=== PATIENT | male | born 1930 | race Caucasian/White ===

== ENCOUNTER 2017-07-03 13:43 | Inpatient (IN) ==
--- NOTE | 2017-07-02 20:53 | Discharge Summary ---
<Leslie Rios - Last Filed: 07/02/17 20:50> Date of Encounter: 07/02/17 - Discharge Diagnosis (1) Arthritis of knee, right Priority: Primary Status: Acute (2) Status post total knee replacement, right Priority: Primary Status: Acute (3) HTN (hypertension) Priority: Secondary Status: Chronic Qualifiers: Hypertension type: essential hypertension Qualified Code(s): I10 - Essential (primary) hypertension - Hospital Course Hospital course: Mr. Ronquillo is a 86 year old male - Time Spent with Patient Total time spent providing and/or coordinating discharge services: - Discharge Medications Home Medications: Aspirin Enteric Coated [Aspirin EC] 325 mg PO BID #20 tablet. 07/02/17 [Rx] OxyCODONE Immed Rel [Roxicodone 5 MG] 5 mg PO Q6HR PRN 7 Days #28 tablet [Rx] Aspirin 81 mg PO DAILY 07/03/17 [History] Cyanocobalamin (Vitamin B-12) [Vitamin B12] 1,000 mcg PO DAILY 07/03/17 [History ] Gabapentin [Neurontin] 100 mg PO BID 07/03/17 [History] Levothyroxine Sodium 50 mcg PO 0630 07/03/17 [History] Multivit-Min/FA/Lycopen/Lutein [Centrum Silver Men Tablet] 1 tab PO DAILY [History] Allergies/Adverse Reactions: 3 Allergy/AdvReac Type Severity Reaction Status Date / Time Sulfa (Sulfonamide Allergy Itching Verified 07/03/17 14:03 Antibiotics) Primary care physician: Dominic Mack, - Patient Status Disposition: Transfer Inpatient Rehab Fac Condition: Good - Discharge Instructions Follow Up With: Corey Escobedo MD [Partnered Physician] - 08/02/17 5:20 pm Leslie Rios, PAC [Physician Construction Helper] - 07/13/17 9:30 am Dominic Mack DO [Primary Care Provider] - Additional Instructions: Discharge Instructions: Total Knee Replacement Please call [facility] ([phone]), your Primary Care Physician, or report to the Emergency Room if you have any of the following symptoms: Nausea, vomiting, fever greater that 101.5, swelling, chest pain, shortness of breath, increased pain/redness/drainage/odor for your incision site, numbness/ tingling, or any other concerning symptoms. ACTIVITY:Weight-bearing as tolerated. You may progress off support (crutches or walker) as tolerated. MEDICATIONS: Upon discharge resume your home medications. Take all the medications as prescribed. Take a stool softener if taking narcotic pain medications. Stool softeners are only effective if you drink enough fluids. Drink 6-8 glass of water or fluids a day, unless this is not allowed for another health problem. Despite using stool softeners, if you haven't had a bowel movement in 3 days, please switch to a gentle laxative. Gentle laxatives are sold over the counter. You should have a bowel movement within 24 hours, if not call the office. You will be discharged from the hospital with a prescription for pain medication. You are encouraged to decrease the use of narcotic pain medication as tolerated. Should you require a refill, please call the office. [facility] prescribes narcotic pain medication for only 4-6 weeks after surgery. If you require pain medication beyond this time period, you may be referred to your Primary Care Physician or to the Pain Clinic for further evaluation. Plan ahead for refills on pain medication as many narcotics either need to be picked up at the office or mailed. It is best to call 48-72 hours in advance of needing a prescription refill so you don't run out of medication. To help control the post-operative pain, you may take NSAIDs (Aleve,Advil, Motrin, Ibuprofen, Naprosyn) or Tylenol as prescribed on the bottle in addition to the pain medication. ANTICOAGULATION (blood thinners): Continue your Aspirin, Lovenox or Coumadin as prescribed to help prevent a blood clot in the leg or in the lungs. As long as your incision remains dry and you tolerate the NSAIDs (Aleve, Advil, Motrin, ibuprofen, naprosyn), it is OK to use the NSAIDS while you are taking your anticoagulation medication. Should your incision start to drain, stop the NSAID and contact our office. Common symptoms of blood clot in the legs include: localized pain, swelling, calf tenderness, redness or discoloration of the skin. Blood clot in the lung symptoms include: shortness of breath, rapid pulse, sweating, and chest pain that worsens with deep breathing, coughing up blood, lightheadedness, feelings of anxiety. If you experience any of these symptoms notify your physician immediately, go to the emergency room, or if having trouble breathing, call 911. WOUND CARE: Leave the dressing on for 7 to 10days. You may change the dressing if it becomes saturated greater than 50%. Do not get the dressing wet at anytime. Wash your hands with antibacterial soap, rinse and dry prior to any wound care. If you have suellen the visiting nurse or rehab facility can remove the stapes 10-14 days after surgery and place steri-strips across the wound. Leave the steri-strips in place until they fall off on their won. You may let water from the shower run on top of the steri-strips. If you do not have a visiting nurse or rehab facility, you will need to return to the office at 10-14 days for the suellen to be removed. If you have itching or redness around the dressing call the office. FOLLOW-UP: Please follow up with your surgeon in the orthopedic clinic in 4 weeks from the day of surgery. If you have suellen that need to be removed, you will need to come back to the office in 10-14 days from the day of surgery. <Corey Escobedo - Last Filed: 07/06/17 06:02> Orders not resulted at time of discharge: Pending orders 07/03/17 00:01 XR knee RT limited 1-2V [XR] Routine H/H [Hemoglobin and Hematocrit] [HEME] Routine 07/03/17 14:09 US anesthesia pain block [US] Routine Date of Encounter: 07/06/17 Time of Encounter: 06:01 - Discharge Diagnosis (1) Arthritis of knee, right Priority: Primary Status: Chronic (2) Status post total knee replacement, right Priority: Primary Status: Acute (3) HTN (hypertension) Priority: Secondary Status: Chronic Qualifiers: Hypertension type: essential hypertension Qualified Code(s): I10 - Essential (primary) hypertension - Hospital Course Hospital course: Mr. Ronquillo is a 86 year old male Status post right total knee replacement The patient had an uneventful postoperative course. They received antibiotics and physical therapy and were discharged in stable condition. There will follow -up in the office in 2 weeks. - Time Spent with Patient Total time spent providing and/or coordinating discharge services: Primary care physician: Dominic Mack, - Patient Status Functional capacity at discharge: uses cane/walker Overall status at discharge: patient is progressing back to baseline
--- NOTE | 2017-07-02 21:47 | Physician Discharge Referral ---
<Leslie Rios Jade - Last Filed: 07/02/17 21:45> ExtendedCare Referral Info Transfer To: [facility] Provider in Charge: Provider in Charge after Transfer: PCP Institutional Level of Care: Skilled - Diagnosis (1) Arthritis of knee, right Priority: Primary Status: Acute (2) Status post total knee replacement, right Priority: Primary Status: Acute (3) HTN (hypertension) Priority: Secondary Status: Chronic Expected Duration of Placement: < 30 days Prognosis: Good Aware of Diagnosis: Patient Aware of Prognosis: Patient - Transfer Medications Prescriptions: OxyCODONE Immed Rel [Roxicodone 5 MG] 5 mg PO Q6HR PRN 7 Days #28 tablet PRN Reason: Pain Aspirin Enteric Coated [Aspirin EC] 325 mg PO BID #20 tablet. Home Medications: Aspirin Enteric Coated [Aspirin EC] 325 mg PO BID #20 tablet. 07/02/17 [Rx] OxyCODONE Immed Rel [Roxicodone 5 MG] 5 mg PO Q6HR PRN 7 Days #28 tablet [Rx] Aspirin 81 mg PO DAILY 07/03/17 [History] Cyanocobalamin (Vitamin B-12) [Vitamin B12] 1,000 mcg PO DAILY 07/03/17 [History ] Gabapentin [Neurontin] 100 mg PO BID 07/03/17 [History] Levothyroxine Sodium 50 mcg PO 0630 07/03/17 [History] Multivit-Min/FA/Lycopen/Lutein [Centrum Silver Men Tablet] 1 tab PO DAILY [History] Allergies/Adverse Reactions: 3 Allergy/AdvReac Type Severity Reaction Status Date / Time Sulfa (Sulfonamide Allergy Itching Verified 07/03/17 14:03 Antibiotics) - Respiratory Orders None Smoking Cessation: Smoking cessation has been advised. For more information, call the [place] Tobacco Quit Line at 2-809-TCFL-NOW. - Ancillary Orders May use pressure relief devices daily prn, May go on FAMILIA w/family/respon libertarian w /meds at nurse discretion PRN, May consult with Dentist, Graphics Programmer, Aircraft Ordnance Technician PRN - Mobility Orders Chair, Ambulate - Rehabiliation Orders Rehab Potential: Good Rehab Orders: ROM Exercises, Evaluation for Physical Therapy, Evaluation for Occupational Therapy - Treatments Skin tear care topically daily PRN per policy List/Other: Knee Continuity: Opsite dressing, leave intact until first post-operative visit. If dressing becomes >50% saturated, contact office, remove dressing and place appropriate dressing in its place. Do not allow for dressing to get wet. Zipline/[place] in place, plan to remove at post-operative day #14-16. Total Joint Precautions x 6 weeks Apply cold therapy wrap 3-6x/day for 20 minutes at a time. Encourage ambulation throughout the day Use Incentive spirometer 10x/hour. Elevate affected extremity above heart as tolerated. Brace: Wear knee immobilizer at night x 2 weeks.~ - Diet Orders Regular CERTIFICATION: I certify that the transfer of the above named patient to an Extended Care Facility is necessary for the continuing treatment of the diagnosis listed. The above information is true and accurate reflection of patient's current condition. Confidential - Redisclosure prohibited without a patient's written consent. <Corey Escobedo - Last Filed: 07/03/17 14:22> - Respiratory Orders Smoking Cessation: Smoking cessation has been advised. For more information, call the [place] Tobacco Quit Line at 4-646-BFQB-NOW. CERTIFICATION: I certify that the transfer of the above named patient to an Extended Care Facility is necessary for the continuing treatment of the diagnosis listed. The above information is true and accurate reflection of patient's current condition. Confidential - Redisclosure prohibited without a patient's written consent.
[2017-07-03] MEDS ORDERED: Ethanol\\Acetic Acid\\Na Ace\\Ben 1,000 ML IRRIG.SOLN IR ONE (13:50)
[2017-07-03] MEDS ORDERED: CeFAZolin Syr 2,000MG/20 ML 2,000 MG/20 ML SYRINGE IVPB ONE (14:02)
--- NOTE | 2017-07-03 14:11 | Anesthesia Evaluation PreOp ---
Date of Encounter: 07/03/17 Time of Encounter: 14:10 - Past History Planned Operation: Right Total Knee Arthroplasty Cardiac History: Denies any Significant Hx Pulmonary History: Denies Any Significant HX TAX RECORD CLERK History: Denies Any Significant HX Other Medical History: Thyroid (Hypothyroid), Other (Gout) Anesthesia History: No Prior Anesthetic Complications, Past Anesthesia (Right Wrist, Left TKR) Alcohol Use: none Drug use: none Medications and Allergies Aspirin Enteric Coated [Aspirin EC] 325 mg PO BID #20 tablet.dr 07/02/17 [Rx] OxyCODONE Immed Rel [Roxicodone 5 MG] 5 mg PO Q6HR PRN 7 Days #28 tablet [Rx] Aspirin 81 mg PO DAILY 07/03/17 [History] Cyanocobalamin (Vitamin B-12) [Vitamin B12] 1,000 mcg PO DAILY 07/03/17 [History ] Gabapentin [Neurontin] 100 mg PO BID 07/03/17 [History] Levothyroxine Sodium 50 mcg PO 0630 07/03/17 [History] Multivit-Min/FA/Lycopen/Lutein [Centrum Silver Men Tablet] 1 tab PO DAILY [History] 3 Allergy/AdvReac Type Severity Reaction Status Date / Time Sulfa (Sulfonamide Allergy Itching Verified 07/03/17 14:03 Antibiotics) - Meds/Allergy Pre-op Review Medications Reviewed: Yes Allergies Reviewed: Yes Beta Blockers on Current Med List: No Anesthesia Results - Labs Laboratory Tests 06/12/17 06/12/17 06/12/17 10:51 10:51 10:51 WBC 9.2 Hgb 13.2 Hct 40.7 Plt Count 310 INR 1.3 Sodium 139 Potassium 4.2 Chloride 105 Carbon Dioxide 29 BUN 15 Creatinine 0.90 Anesthesia Exam Vital Signs/O2 Sat, Most Current Temp Pulse Resp BP Pulse Ox 97.7 F 92 18 161/73 97 07/03/17 14:03 07/03/17 14:03 07/03/17 14:03 07/03/17 14:03 07/03/17 14:03 NPO (# of Hours): > 8 Hrs Pain Scale: 0 Pain Scale Used: Numeric (1 - 10) - HEENT Pupil (Motor): Pupils equal, EOMI Mallampati: III Teeth: Missing Oral Opening: Greater than 3 - TAX RECORD CLERK LOC: Oriented TAX RECORD CLERK Motor: Normal RUE, Normal LUE, Normal RLE, Normal LLE, Normal Face TAX RECORD CLERK Sensory: Normal: RUE, LUE, RLE, LLE, Face - Cardiac Rhythm: Regular Murmur: None JVD: No Carotid Bruit: No - Pulmonary Breath Sounds: bilateral Clear Respiratory Effort: Symmetrical Anesthesia Assess/Plan ASA Score: 2 Modified Gwyn Scale for Level of Consciousness: Cooperative, oriented, and tranquil Anesthetic Plan: General, Regional (Spinal, Adductor Canal Block) Autologous Blood: Yes Monitoring Plan: Standard Monitors Recovery Plan: PACU
[2017-07-03] MEDS ORDERED: Ringers Solution, Lactated 1,000 ML IVC SCH ×2 (14:15→19:17)
--- NOTE | 2017-07-03 14:22 | History & Physical Report ---
Date of Encounter: 07/03/17 Time of Encounter: 14:22 24 Hour HP Update - Instructions Instructions: If the History and Physical is less than 30 days old and was completed prior to A.M. admission and or procedure and has NOT been updated on calendar day of procedure please complete this update prior to performing procedure. - Update Patient reports changes in Medical Condition: No Changes in examination, assessment, or condition: No Changes in Medication: No Preop tests/diagnostics Reviewed: Yes Surgery Remains Indicated: Yes Consent for Planned Operative Procedure(s) Verified: Yes - Pre-Operative Checklist Preoperative Checklist Indicated: No Prophylactic Antibiotic Ordered: Yes Is VTE Prophylaxis Indicated?: Yes
[2017-07-03] MEDS ORDERED: Dexamethasone 4 MG/ML VIAL ONE ×2 (15:23→16:53)
[2017-07-03] MEDS ORDERED: Lidocaine -MPF 2% 2 ML VIAL ONE (15:23)
[2017-07-03] MEDS ORDERED: Ondansetron 4 MG/2 ML VIAL ONE (15:23)
[2017-07-03] MEDS ORDERED: *HR* FentaNYL (PF) 100 MCG/2 ML VIAL ONE (15:23)
[2017-07-03] MEDS ORDERED: *HR* Propofol 200 MG/20 ML VIAL IVP ONE (15:24)
[2017-07-03] MEDS ORDERED: *HR* Midazolam HCl 2 MG/2 ML VIAL ONE (15:24)
[2017-07-03] MEDS ORDERED: ROPIVACAINE HCL/PF 0.5% 30 ML VIAL ONE (16:24)
[2017-07-03] MEDS ORDERED: *HR* Morphine Sulfate/PF 10 MG/10 ML AMPUL ONE (16:25)
[2017-07-03] MEDS ORDERED: Propofol 500 MG/50 ML INFUS..BTL ONE (16:56)
[2017-07-03] MEDS ORDERED: *HR* PHENYLEPHRINE 1,000 MCG/10 ML SYRINGE IVP ONE (17:26)
[2017-07-03] MEDS ORDERED: *HR* OxyCODONE/APAP 5/325 TABLET PO PRN (17:28)
--- NOTE | 2017-07-03 17:32 | Anesthesia Procedures ---
Date of Encounter: 07/03/17 Time of Encounter: 16:30 Procedures: Anesthesia - Epidural/Spinal Patient ID/Chart reviewed: Yes Patient examined: Yes Consent Obtained: Yes Supplemental Oxygen: Nasal Cannula Supplemental Oxygen Rate (L/min): 2 Sedation: Versed (mg): 1 Sedation: Fentanyl (mcg): 1 Site Prep: Aseptic Technique, Sterile prep and drape, Povidone-Iodine 1% Patient position: upright Local Anesthetic: Lidocaine 1% Interspace Used: L4-L5 Blood: No CSF: Yes (spinal ) Paresthesia: No Spinal Needle Gauge: 24 (pencan 3 1/2) Spinal Dose: see procedure note Procedure: PIV PATENT, FLUID BOLUS, PREHYDRATED, MONITORS ON, 2LNC, SITTING UPRIGHT, STERILE PREP AND DRAPE, 1% LIDOCAINE FOR LOCAL. 24G PENCAN 3 1/2 INTRODUCER/ SPINAL NEEDLE TO L4-L5, +CSF, NEG HEM, NEG PARATHESIA, DOSED AT 1645. SENSORY BLOCKED CONFIRMED. MEDS GIVEN: BUPIVICAINE 0.5% PLAIN 1.5ML + DURAMORPH 200MCG+ FENTANYL 20MCG. VSS. Vitals + FHT's: Vital Signs - Last 8 Hours Temp Pulse Resp BP Pulse Ox 07/03/17 17:01 69 16 126/57 99 07/03/17 16:51 73 126/60 97 07/03/17 16:20 72 16 124/58 95 07/03/17 14:03 97.7 F 92 18 161/73 97 Intake and Output 07/03/17 07/03/17 07/03/17 07:59 15:59 23:59 Other: Weight 53.524 kg Patient Weight 07/03/17 23:59 Weight 53.524 kg - Nerve Block Procedure Date: 07/03/17 Time: 16:30 Allergies/Adv Reactions: sulfa Pre-op Diagnosis: right total knee arthritis Surgical Procedure: right total knee Checklist: Correct Patient Identifier, Correct procedure, History checked Correct side: Right Blood Thinner: No Monitor Applied: EKG, BP, Pulse Oximetry Supplemental Oxygen via Nasal Cannula (L/min): 2 Sedation: Versed (mg): 1 Sedation: Fentanyl (mcg): 1 Indication: Post Op Analgesia Pre-op Neuro Deficits: No Block Type: Other (adductor canal ) Catheter placed: No Sterile Technique: Yes Ultrasound used: Yes Anatomy identified: Yes Visual spread of Local: Yes Neuro Stimulation: No Blood on Needle Aspiration: No Smooth Injection of Local: Yes Pain with Injection of Local: No Prep: Chlorhexadine Needle: 22 x 50 mm Stimuplex Local: Ropivacaine (ropi 0.5% with 8mg decadron ) Volume (cc): 30 Number of Attempts: 1 Complications: None/effective block Vitals: Vital Signs - Last 8 Hours Temp Pulse Resp BP Pulse Ox 07/03/17 17:01 69 16 126/57 99 07/03/17 16:51 73 126/60 97 07/03/17 16:20 72 16 124/58 95 07/03/17 14:03 97.7 F 92 18 161/73 97 Intake and Output 07/03/17 07/03/17 07/03/17 07:59 15:59 23:59 Other: Weight 53.524 kg Patient Weight 07/03/17 23:59 Weight 53.524 kg Comments: per dr. baker request
--- NOTE | 2017-07-03 17:42 | Orthopedic Operative Note ---
Date of procedure: 07/03/17 Pre-op diagnosis: Right knee arthritis Post-op diagnosis: same Procedure: Procedure: Right Total knee replacement Estimated blood loss: 200 cc Hardware: Metal and polyethylene replacement. Arthrex Femur: 5 Tibia: 5 PS insert: 9 Patella: 34 Exam Under anesthesia: Loss of full extension about 10 degrees, varus alignment Procedural Notes: Grade 4 arthritic changes all 3 compartments. Operative procedure: The patient was brought to the operating room and placed on the operating room table. After general anesthesia was administered the operative knee was examined. Findings were noted in the exam under anesthesia. The operative extremity was prepped and draped in sterile surgical fashion. The patient received IV antibiotics prior to skin incision. A standard midline incision was made centered over the patella. The incision was made through the skin and subcutaneous tissue. A medial parapatellar tendon approach was performed. Care was taken to preserve tissue along the medial aspect of the patella. And to protect the patella tendon. The deep MCL was released off the medial tibia. The infra patella fat pad was excised. Knee was brought into flexion. Patient noted to have grade 4 arthritic changes all 3 compartments. The entry hole was made for the intramedullary femoral guide. The guide was seated in 6 degrees of valgus. Anterior cut was made followed by the distal cut. The ACL the PCL the medial and the lateral menisci were excised. The tibia was subluxed forward. The entry hole was made for the intramedullary tibial guide. Guide was seated to resect 2 mm off the more abnormal side. The knee was brought into flexion the distal femur was sized to a 5. The femoral guide was seated, the anterior cut was made followed by the posterior condylar cut, followed by the chamfer cuts. The finishing guide was seated the box cut was made and the lug holes were drilled. The tibia was sized to a 5, the tibial tray was seated and prepared with the large drill followed by the fin cutter. Trial reduction revealed full extension no varus valgus instability with the appropriate 9 PS Rachell. The patella was everted and cut was made at the level of the insertion of the quadriceps and patella tendon. The patella was sized to a 34 the guide was seated and the lug holes are drilled. Trial reduction revealed excellent patella tracking. All trial components were removed all bony surfaces were irrigated. The tibia was cemented first followed by the femur. The 9 PS Rachell was seated and the knee was brought into full extension. The patella was cemented and held in place with the patellar holding clamp. After the cement had hardened, the knee sat for 2 minutes with a antibacterial solution. The knee was then irrigated out with 2 L of pulse irrigation. The extensor mechanism was closed with #2 FiberWire suture and #2 PDS suture. The subcutaneous tissue was then irrigated and closed deep with #1 PDS suture superficially with 0 PDS suture and skin was closed with skin suellen. The patient was then placed in a sterile dressing and a postoperative brace extubated and transferred to recovery room in stable condition. Anesthesia: spinal Surgeon: Corey Escobedo Was there an nurseryman assistant present: Yes Dining Room Maid: Georgia Barry Estimated blood loss (cc): 200 Condition: stable Disposition: PACU
[2017-07-03] MEDS ORDERED: *HR* Enoxaparin 30 MG/0.3 ML SYRINGE SQ SCH (18:00)
[2017-07-03 18:33] LABS: Hematocrit 35.1 % (37.5-50.1); Hemoglobin 11.6 g/dL (12.9-16.9)
[2017-07-03] MEDS ORDERED: *HR* OxyCODONE Immed Rel 5 MG TABLET PO PRN (19:17)
[2017-07-03] MEDS ORDERED: Naloxone 0.4 MG/ML INJ IVP PRN (19:17)
[2017-07-03] MEDS ORDERED: Temazepam 15 MG CAPSULE PO PRN (19:17)
[2017-07-03] MEDS ORDERED: Ondansetron 4 MG/2 ML VIAL IVP PRN (19:17)
[2017-07-03] MEDS ORDERED: Sennosides 8.6 MG TABLET PO PRN (19:17)
[2017-07-03] MEDS ORDERED: MOM Conc 10 ML UD.LIQ PO PRN (19:17)
[2017-07-03] MEDS: Gabapentin 100 MG CAPSULE PO SCH (21:31)
[2017-07-04] MEDS: CeFAZolin Premix DUPLEX 2,000 MG/50 ML BAG IVPB SCH ×2 (00:49→08:33)
[2017-07-04] MEDS: *HR* Enoxaparin 30 MG/0.3 ML SYRINGE SQ SCH ×2 (05:16→16:33)
[2017-07-04] MEDS: *HR* OxyCODONE Immed Rel 5 MG TABLET PO PRN ×3 (05:51→20:45)
[2017-07-04 06:56] LABS: Hematocrit 35.1 % (37.5-50.1); Hemoglobin 11.5 g/dL (12.9-16.9)
[2017-07-04 07:09] LABS: BUN/Creatinine Ratio 26 (6-26); Blood Urea Nitrogen 23 mg/dL (8-23); Carbon Dioxide 26 mEq/L (23-29); Chloride 105 mEq/L (98-107); Glucose 135 mg/dL (70-105); Osmolality,Calculated 290 (280-300); Potassium 4.9 mEq/L (3.5-5.1); Sodium 137 mEq/L (136-145); eGFR For African Americans > 60 (> 60); eGFR For Non-African Americans > 60 (> 60)
--- NOTE | 2017-07-04 08:13 | Orthopedics Progress Note ---
Date of Encounter: 07/04/17 Time of Encounter: 08:13 - Assessment and Plan (1) Arthritis of knee, right Current Visit: No Status: Chronic (2) Status post total knee replacement, right Current Visit: No Status: Acute (3) HTN (hypertension) Current Visit: No Status: Chronic Qualifiers: Hypertension type: essential hypertension Qualified Code(s): I10 - Essential (primary) hypertension Subjective Interval history: Patient was seen this morning doing well without complaints. Afebrile vital signs stable. Operative extremity: Neurovascularly intact Dressing clean dry and intact Calves nontender Assessment and plan: Continue with postoperative care Hematocrit 35 Objective Vital signs: Vital Signs Temp Pulse Resp BP Pulse Ox 07/04/17 06:58 97.6 F 67 18 101/58 96 07/04/17 03:53 97.9 F 61 16 116/65 99 07/03/17 22:20 98.6 F 75 16 122/88 98 07/03/17 21:20 98.3 F 73 16 130/80 95 07/03/17 20:20 97.9 F 78 16 122/72 95 07/03/17 19:50 97.8 F 68 16 127/75 95 07/03/17 19:33 97.6 F 62 16 105/63 95 07/03/17 18:50 65 18 111/57 95 07/03/17 18:40 97.7 F 67 16 115/56 96 07/03/17 18:30 62 14 109/56 97 07/03/17 18:20 68 14 109/55 96 07/03/17 18:10 97.3 F L 70 13 116/53 100 07/03/17 17:01 69 16 126/57 99 07/03/17 16:51 73 126/60 97 07/03/17 16:20 72 16 124/58 95 07/03/17 14:03 97.7 F 92 18 161/73 97 Intake and Output 07/03/17 07/04/17 07/04/17 23:59 07:59 15:59 Output Total 200 / 200 450 / 450 Balance -200 / -200 -450 / -450 Output: Estimated Blood Loss 200 / 200 Straight Cath 450 / 450 - Labs CBC & BMP: 07/04/17 06:21 07/04/17 06:21 Labs: Abnormal lab results Hgb 11.5 g/dL (12.9-16.9) L 07/04/17 06:21 Hct 35.1 % (37.5-50.1) L 07/04/17 06:21 Glucose 135 mg/dL (70-105) H 07/04/17 06:21 Consult Discharge Plan - Plan Referrals: Dominic Mack DO [Primary Care Provider] -
[2017-07-04] MEDS: Multivit/Ca/Min/Fe/FA 1 TAB TABLET PO SCH (08:33)
[2017-07-04] MEDS: Gabapentin 100 MG CAPSULE PO SCH ×2 (08:33→20:45)
[2017-07-04] MEDS: Aspirin 81 MG TAB.CHEW PO SCH (08:33)
[2017-07-04] MEDS: Cyanocobalamin (B-12) 1,000 MCG TABLET PO SCH (08:33)
--- NOTE | 2017-07-04 15:57 | Event Note ---
Date of Encounter: 07/04/17 Time of Encounter: 12:45 PCR - POD#1 - Right TKR 07/04/17 Patient seen at bedside. Labs reviewed. Pain control: adequate. Participating in PT. All questions and concerns addressed. Educated on use of incentive spirometer. Encouraged ambulation and proper hydration. Patient educated on post-operative restrictions and post-operative care. Discharge plan: [facility] Susanne islas
[2017-07-04] MEDS ORDERED: Acetaminophen 325 MG TABLET PO PRN (19:55)
[2017-07-05] MEDS: *HR* OxyCODONE Immed Rel 5 MG TABLET PO PRN ×3 (04:46→20:10)
[2017-07-05] MEDS: *HR* Enoxaparin 30 MG/0.3 ML SYRINGE SQ SCH ×2 (04:46→17:02)
[2017-07-05 06:33] LABS: Hematocrit 30.4 % (37.5-50.1); Hemoglobin 10.2 g/dL (12.9-16.9)
--- NOTE | 2017-07-05 06:37 | Orthopedics Progress Note ---
Date of Encounter: 07/05/17 Time of Encounter: 06:37 - Assessment and Plan (1) Arthritis of knee, right Current Visit: No Status: Chronic (2) Status post total knee replacement, right Current Visit: No Status: Acute (3) HTN (hypertension) Current Visit: No Status: Chronic Qualifiers: Hypertension type: essential hypertension Qualified Code(s): I10 - Essential (primary) hypertension Subjective Interval history: Patient was seen this morning doing well without complaints. Afebrile vital signs stable. Operative extremity: Neurovascularly intact Dressing clean dry and intact Calves nontender Assessment and plan: Continue with postoperative care Hematocrit 30 discharged tomorrow Objective Vital signs: Vital Signs Temp Pulse Resp BP Pulse Ox 07/05/17 04:13 99.2 F 104 20 172/50 95 07/04/17 23:23 99.8 F H 98 15 118/62 94 07/04/17 14:51 98.1 F 85 18 144/67 93 07/04/17 10:54 98.1 F 124 18 125/63 95 07/04/17 08:45 95 07/04/17 06:58 97.6 F 67 18 101/58 96 Intake and Output 07/04/17 07/04/17 07/05/17 15:59 23:59 07:59 Intake Total 600 / 600 Output Total 200 / 200 250 / 250 Balance 600 / 600 -200 / -200 -250 / -250 Intake: Oral 600 / 600 Output: Urine 200 / 200 250 / 250 Other: Meal Lunch Percent of Meal Consumed 95% - Labs CBC & BMP: 07/05/17 05:56 07/04/17 06:21 Labs: Abnormal lab results Hgb 10.2 g/dL (12.9-16.9) L 07/05/17 05:56 Hct 30.4 % (37.5-50.1) L 07/05/17 05:56 Glucose 135 mg/dL (70-105) H 07/04/17 06:21 - VTE Documentation of Mechanical Device: Venous foot pump, device Consult Discharge Plan - Plan Additional Instructions: Discharge Instructions: Total Knee Replacement Please call [facility] ([phone]), your Primary Care Physician, or report to the Emergency Room if you have any of the following symptoms: Nausea, vomiting, fever greater that 101.5, swelling, chest pain, shortness of breath, increased pain/redness/drainage/odor for your incision site, numbness/ tingling, or any other concerning symptoms. ACTIVITY:Weight-bearing as tolerated. You may progress off support (crutches or walker) as tolerated. MEDICATIONS: Upon discharge resume your home medications. Take all the medications as prescribed. Take a stool softener if taking narcotic pain medications. Stool softeners are only effective if you drink enough fluids. Drink 6-8 glass of water or fluids a day, unless this is not allowed for another health problem. Despite using stool softeners, if you haven't had a bowel movement in 3 days, please switch to a gentle laxative. Gentle laxatives are sold over the counter. You should have a bowel movement within 24 hours, if not call the office. You will be discharged from the hospital with a prescription for pain medication. You are encouraged to decrease the use of narcotic pain medication as tolerated. Should you require a refill, please call the office. [facility] prescribes narcotic pain medication for only 4-6 weeks after surgery. If you require pain medication beyond this time period, you may be referred to your Primary Care Physician or to the Pain Clinic for further evaluation. Plan ahead for refills on pain medication as many narcotics either need to be picked up at the office or mailed. It is best to call 48-72 hours in advance of needing a prescription refill so you don't run out of medication. To help control the post-operative pain, you may take NSAIDs (Aleve,Advil, Motrin, Ibuprofen, Naprosyn) or Tylenol as prescribed on the bottle in addition to the pain medication. ANTICOAGULATION (blood thinners): Continue your Aspirin, Lovenox or Coumadin as prescribed to help prevent a blood clot in the leg or in the lungs. As long as your incision remains dry and you tolerate the NSAIDs (Aleve, Advil, Motrin, ibuprofen, naprosyn), it is OK to use the NSAIDS while you are taking your anticoagulation medication. Should your incision start to drain, stop the NSAID and contact our office. Common symptoms of blood clot in the legs include: localized pain, swelling, calf tenderness, redness or discoloration of the skin. Blood clot in the lung symptoms include: shortness of breath, rapid pulse, sweating, and chest pain that worsens with deep breathing, coughing up blood, lightheadedness, feelings of anxiety. If you experience any of these symptoms notify your physician immediately, go to the emergency room, or if having trouble breathing, call 911. WOUND CARE: Leave the dressing on for 7 to 10days. You may change the dressing if it becomes saturated greater than 50%. Do not get the dressing wet at anytime. Wash your hands with antibacterial soap, rinse and dry prior to any wound care. If you have suellen the visiting nurse or rehab facility can remove the stapes 10-14 days after surgery [address] steri-strips across the wound. Leave the steri-strips in place until they fall off on their won. You may let water from the shower run on top of the steri-strips. If you do not have a visiting nurse or rehab facility, you will need to return to the office at 10-14 days for the suellen to be removed. If you have itching or redness around the dressing call the office. FOLLOW-UP: Please follow up with your surgeon in the orthopedic clinic in 4 weeks from the day of surgery. If you have suellen that need to be removed, you will need to come back to the office in 10-14 days from the day of surgery. Referrals: Corey Escobedo MD [Partnered Physician] - 08/02/17 5:20 pm Leslie Rios PAC [Physician Real Estate Agent/Broker] - 07/13/17 9:30 am Dominic Mack DO [Primary Care Provider] -
[2017-07-05 06:47] LABS: BUN/Creatinine Ratio 22 (6-26); Blood Urea Nitrogen 19 mg/dL (8-23); Calcium 8.7 mg/dL (8.6-10.3); Carbon Dioxide 26 mEq/L (23-29); Chloride 100 mEq/L (98-107); Glucose 145 mg/dL (70-105); Osmolality,Calculated 279 (280-300); Potassium 3.9 mEq/L (3.5-5.1); Sodium 132 mEq/L (136-145); eGFR For African Americans > 60 (> 60); eGFR For Non-African Americans > 60 (> 60)
[2017-07-05] MEDS: Gabapentin 100 MG CAPSULE PO SCH ×2 (09:05→20:10)
[2017-07-05] MEDS: Multivit/Ca/Min/Fe/FA 1 TAB TABLET PO SCH (09:05)
[2017-07-05] MEDS: Aspirin 81 MG TAB.CHEW PO SCH (09:05)
[2017-07-05] MEDS: Cyanocobalamin (B-12) 1,000 MCG TABLET PO SCH (09:05)
[2017-07-06] MEDS: *HR* OxyCODONE Immed Rel 5 MG TABLET PO PRN ×3 (02:05→12:25)
[2017-07-06] MEDS: *HR* Enoxaparin 30 MG/0.3 ML SYRINGE SQ SCH (05:57)
--- NOTE | 2017-07-06 06:02 | Orthopedics Progress Note ---
Date of Encounter: 07/06/17 Time of Encounter: 06:02 - Assessment and Plan (1) Arthritis of knee, right Current Visit: No Status: Chronic (2) Status post total knee replacement, right Current Visit: No Status: Acute (3) HTN (hypertension) Current Visit: No Status: Chronic Qualifiers: Hypertension type: essential hypertension Qualified Code(s): I10 - Essential (primary) hypertension Subjective Interval history: Patient was seen this morning doing well without complaints. Afebrile vital signs stable. Operative extremity: Neurovascularly intact Dressing clean dry and intact Calves nontender Assessment and plan: Continue with postoperative care Hematocrit 30 discharged today Objective Vital signs: Vital Signs Temp Pulse Resp BP Pulse Ox 07/05/17 18:00 99.9 F H 117 19 130/71 96 07/05/17 14:00 98.8 F 89 16 154/78 98 07/05/17 09:44 98.5 F 98 16 144/83 96 07/05/17 09:00 98.5 F 99 20 135/57 99 07/05/17 06:25 98.8 F 107 18 148/78 96 Intake and Output 07/05/17 07/05/17 07/06/17 15:59 23:59 07:59 Output Total 200 / 200 Balance -200 / -200 Output: Urine 200 / 200 - Labs CBC & BMP: 07/05/17 05:56 07/05/17 05:56 Labs: Abnormal lab results Hgb 10.2 g/dL (12.9-16.9) L 07/05/17 05:56 Hct 30.4 % (37.5-50.1) L 07/05/17 05:56 Sodium 132 mEq/L (136-145) L 07/05/17 05:56 Glucose 145 mg/dL (70-105) H 07/05/17 05:56 Calculated Osmolality 279 (280-300) L 07/05/17 05:56 - VTE Documentation of Mechanical Device: Venous foot pump, device Consult Discharge Plan - Plan Additional Instructions: Discharge Instructions: Total Knee Replacement Please call [facility] ([phone]), your Primary Care Physician, or report to the Emergency Room if you have any of the following symptoms: Nausea, vomiting, fever greater that 101.5, swelling, chest pain, shortness of breath, increased pain/redness/drainage/odor for your incision site, numbness/ tingling, or any other concerning symptoms. ACTIVITY:Weight-bearing as tolerated. You may progress off support (crutches or walker) as tolerated. MEDICATIONS: Upon discharge resume your home medications. Take all the medications as prescribed. Take a stool softener if taking narcotic pain medications. Stool softeners are only effective if you drink enough fluids. Drink 6-8 glass of water or fluids a day, unless this is not allowed for another health problem. Despite using stool softeners, if you haven't had a bowel movement in 3 days, please switch to a gentle laxative. Gentle laxatives are sold over the counter. You should have a bowel movement within 24 hours, if not call the office. You will be discharged from the hospital with a prescription for pain medication. You are encouraged to decrease the use of narcotic pain medication as tolerated. Should you require a refill, please call the office. [facility] prescribes narcotic pain medication for only 4-6 weeks after surgery. If you require pain medication beyond this time period, you may be referred to your Primary Care Physician or to the Pain Clinic for further evaluation. Plan ahead for refills on pain medication as many narcotics either need to be picked up at the office or mailed. It is best to call 48-72 hours in advance of needing a prescription refill so you don't run out of medication. To help control the post-operative pain, you may take NSAIDs (Aleve,Advil, Motrin, Ibuprofen, Naprosyn) or Tylenol as prescribed on the bottle in addition to the pain medication. ANTICOAGULATION (blood thinners): Continue your Aspirin, Lovenox or Coumadin as prescribed to help prevent a blood clot in the leg or in the lungs. As long as your incision remains dry and you tolerate the NSAIDs (Aleve, Advil, Motrin, ibuprofen, naprosyn), it is OK to use the NSAIDS while you are taking your anticoagulation medication. Should your incision start to drain, stop the NSAID and contact our office. Common symptoms of blood clot in the legs include: localized pain, swelling, calf tenderness, redness or discoloration of the skin. Blood clot in the lung symptoms include: shortness of breath, rapid pulse, sweating, and chest pain that worsens with deep breathing, coughing up blood, lightheadedness, feelings of anxiety. If you experience any of these symptoms notify your physician immediately, go to the emergency room, or if having trouble breathing, call 911. WOUND CARE: Leave the dressing on for 7 to 10days. You may change the dressing if it becomes saturated greater than 50%. Do not get the dressing wet at anytime. Wash your hands with antibacterial soap, rinse and dry prior to any wound care. If you have suellen the visiting nurse or rehab facility can remove the stapes 10-14 days after surgery [address] steri-strips across the wound. Leave the steri-strips in place until they fall off on their won. You may let water from the shower run on top of the steri-strips. If you do not have a visiting nurse or rehab facility, you will need to return to the office at 10-14 days for the suellen to be removed. If you have itching or redness around the dressing call the office. FOLLOW-UP: Please follow up with your surgeon in the orthopedic clinic in 4 weeks from the day of surgery. If you have suellen that need to be removed, you will need to come back to the office in 10-14 days from the day of surgery. Referrals: Corey Escobedo MD [Partnered Physician] - 08/02/17 5:20 pm Leslie Rios PAC [Physician End Packer] - 07/13/17 9:30 am Dominic Mack DO [Primary Care Provider] -
[2017-07-06] MEDS: Multivit/Ca/Min/Fe/FA 1 TAB TABLET PO SCH (08:29)
[2017-07-06] MEDS: Gabapentin 100 MG CAPSULE PO SCH (08:29)
[2017-07-06] MEDS: Aspirin 81 MG TAB.CHEW PO SCH (08:29)
[2017-07-06] MEDS: Cyanocobalamin (B-12) 1,000 MCG TABLET PO SCH (08:29)
[2017-07-06 11:13] VITALS: BP 125/66
== END 2017-07-06 12:27 | DRG 470 ==
LOC: SAMDAY 13:43 → 3NENU 19:17
PROVIDERS: ADMIT Orthopaedic Surgery; ATTEND Orthopaedic Surgery